=== PATIENT | female | born 1940 | race Caucasian/White ===

== ENCOUNTER 2018-02-26 12:05 | Emergency (ER) | payer MEDICARE, OTHER ==
[~2018-02-26] VITALS: Ht 167.6 cm; Wt 64.4 kg
--- NOTE | 2018-02-26 12:10 | NUR ---
BIB [facility] with c/o syncopal episode. Pt arrives A/O x 4, pt states she was walking in the hallway at home, started feeling dizzy and passed out.
[2018-02-26] MEDS ORDERED: ZOCOR (12:13)
[2018-02-26] MEDS ORDERED: PREMARIN (12:13)
[2018-02-26] MEDS ORDERED: NITROFURANTOIN (12:13)
[2018-02-26] MEDS ORDERED: ESTR0.5T PO (12:18)
[2018-02-26] MEDS ORDERED: SIMV10TA6 PO (12:18)
[2018-02-26] MEDS ORDERED: PROG100C15 PO (12:18)
[2018-02-26] MEDS ORDERED: NITR100C13 PO (12:18)
[2018-02-26] MEDS ORDERED: CETI1SOL48 PO (12:18)
--- NOTE | 2018-02-26 12:19 | NUR ---
BIB EMS. PATIENT IS A/A/O X3 IN NO DISTRESS. PLACED ON A MONITOR.
[2018-02-26 13:03] LABS: BASOPHILS # (AUTO) 0.1 K/uL (0.0-8.0); BASOPHILS % (AUTO) 0.3 % (0.0-2.0); EOSINOPHILS % (AUTO) 0.1 % (0.0-7.0); HEMATOCRIT 36.2 % (31.2-41.9); HEMOGLOBIN 12.6 g/dL (10.9-14.3); LYMPHOCYTES # (AUTO) 0.9 K/uL (20.0-40.0); LYMPHOCYTES % (AUTO) 4.5 % (20.5-51.5); MEAN CORPUSCULAR HEMOGLOBIN 31.6 uug (24.7-32.8); MEAN CORPUSCULAR HGB CONC 35 g/dL (32.3-35.6); MONOCYTES # (AUTO) 0.9 K/uL (2.0-10.0); MONOCYTES % (AUTO) 4.7 % (0.0-11.0); NEUTROPHILS # (AUTO) 17.1 K/uL (1.8-8.9); NEUTROPHILS % (AUTO) 90.4 % (38.5-71.5); PLATELET COUNT (AUTO) 238 K/uL (179-408); RED BLOOD CELL COUNT(AUTO) 3.98 MIL/uL (3.63-4.92); WHITE BLOOD COUNT (AUTO) 18.9 K/uL (3.8-11.8)
[2018-02-26 13:11] LABS: CARBON DIOXIDE 28 mmol/L (21-32); CHLORIDE 102 mmol/L (98-107); CREATININE 0.8 mg/dL (0.6-1.3); GLUCOSE 116 mg/dL (74-106); UREA NITROGEN, BLOOD 18 mg/dL (7-18)
[2018-02-26 13:17] LABS: ALANINE AMINOTRANSFERASE 25 U/L (14-59); ALKALINE PHOSPHATASE 59 U/L (50-136); ASPARTATE AMINOTRANSFERASE 24 U/L (15-37); BILIRUBIN,DIRECT 0.1 mg/dL (0.0-0.2); BILIRUBIN,TOTAL 0.5 mg/dL (0.2-1.0); TOTAL PROTEIN, SERUM 7.5 g/dL (6.4-8.2)
[2018-02-26] MEDS ORDERED: PIPERACILLIN SODIUM/TAZOBACTAM 3.375 G in IV DEXTROSE 5% 50 ML IV ONE (13:30)
[2018-02-26] MEDS ORDERED: LEVOFLOXACIN 500 MG/D5W 100ML PIGGYBACK IV ONE (13:30)
[2018-02-26] MEDS ORDERED: DEXAMETHASONE SOD PHOSPHATE 4 MG INJ IV ONE (13:30)
[2018-02-26] MEDS ORDERED: IV NORMAL SALINE 1000 ML BAG IV ONE (13:30)
[2018-02-26] MEDS ORDERED: PIPERACILLIN/TAZOBACTAM/D5W 50 ML IV ONE (13:30)
--- NOTE | 2018-02-26 13:45 | NUR ---
PATIENT AMBULATED TO BATHROOM WITH STEADY GAIT. DENIES DIZZINESS. URINE SENT TO LAB
[2018-02-26 13:48] LABS: *BILIRUBIN,URIN NEGATIVE (NEGATIVE); *BLOOD, URINE 2+ (NEGATIVE); *CLARITY,URINE CLEAR (CLEAR); *COLOR,URINE YELLOW (YELLOW); *KETONES,URINE NEGATIVE (NEGATIVE); *PROTEIN,URINE NEGATIVE (NEGATIVE); *UROBILINOGEN,URINE 0.2 E.U./dl (NORMAL); LEUKOCYTE ESTERASE ,URINE TRACE (NEGATIVE); NITRITE, URINE NEGATIVE (NEGATIVE); PH,URINE 7.5 (5.0-8.0); UGLUCOSE NEGATIVE (NEGATIVE)
[2018-02-26] MEDS ORDERED: DEXAMETHASONE SOD PHOSPHATE 10 MG INJ ONE (13:48)
[2018-02-26 13:49] LABS: BACTERIA,URINE FEW /HPF (NONE SEEN); SQUAMOUS EPITHELIAL CELL,UR MODERATE /HPF (NONE SEEN)
[2018-02-26] MEDS ORDERED: LEVOFLOXACIN 500 MG/D5W 100 ML ONE (13:49)
--- NOTE | 2018-02-26 13:55 | NUR ---
wHEN PATIENT GOT BACK FROM THE [facility], SHE C/O iv SITE PAIN. IV WAS INFILTRATED. I REMOVED IT, SITE LOOKED PINK, SLIGHTLY SWOLLEN, STERILE DRESSING APPLIED, AND I NOTIFIED DR ROBERTS OF INFILTRATION. I PLACED A NEW IV ON THE LEFT HAND AND RESTARTED THE MEDICATION AND IV FLUIDS. Addendum: 02/26/18 at 1506 by TAZADIAN *BATHROOM
--- NOTE | 2018-02-26 16:10 | NUR ---
PATIENT IS INSISTING THAT SHE FEELS "JUST FINE" WANTS TO GO HOME AND STATES SHE DEFINETLY WILL NOT [facility] A OERNIGHT, SHE TOLD THIS TO DR ROBERTS WELL. SHE AMBULATED TO BATHROOM AGAIN, IN STEADY GAIT, DENIES DIZZINESS OR FEELING OF FAINT OR LIGHT HEARTEDNESS.
--- NOTE | 2018-02-26 16:33 | NUR ---
IV removed. Catheter intact and site benign. Pressure and 4x4 gauze applied to site. No bleeding noted.
--- NOTE | 2018-02-26 16:34 | NUR ---
DC, Rx and follow up instructions given and explained to patient who states she understands all instructions. Patient and asked to take "Lyft or Uber" home. With their request, i assisted set up of Lyft cook pickled meat then escorted them outside and helped them in the Lyft vehicle.
[2018-02-26 16:38] VITALS: BP 135/78
== END 2018-02-26 16:38 | disposition home or self-care (01) ==
LOC: ER 12:05
DX: R55 Syncope and collapse (principal); J18.9 Pneumonia, unspecified organism; E78.5 Hyperlipidemia, unspecified; Z79.899 Other long term (current) drug therapy
CPT/HCPCS: 36415; 70450; 71045; 80048; 80076; 81001; 83605; 84484; 85025; 85730; 87040 ×2; 87086; 93005; 96365; 96367; 96375; 99284; J1100; J1956; J2543; 70030-TC; A4663; J7030